=== PATIENT | male | born 1945 | race Caucasian/White ===

== ENCOUNTER 2023-08-26 08:28 | Day surgery (SDC) | payer BC, SELFPAY ==
[2023-08-15 08:23] VITALS: BMI 29.2
[2023-08-15 08:56] LABS: % Basophils 1.2 % (0-2); % Eosinophils 2.5 % (0-6); % Immature Granulocytes 0.1 % (0-0.5); % Lymphocytes 20.4 % (20.5-51.1); % Monocytes 8.6 % (1.7-9.3); % Neutrophils 67.2 % (42.2-75.2); Absolute Basophils 0.1 10^3/uL (0-0.2); Absolute Eosinophils 0.2 10^3/uL (0-0.7); Absolute Lymphocytes 1.4 10^3/uL (1.2-3.4); Absolute Monocytes 0.6 10^3/uL (0.1-0.6); Absolute Neutrophils 4.5 10^3/uL (1.4-6.5); Hemoglobin 15.3 g/dL (13.0-18.0); Mean Corp Hgb Conc. 33.3 g/dL (33.0-37.0); Mean Corpuscular Hgb 30.2 pg (27.0-31.0); Mean Corpuscular Volume 90.7 fL (80.0-94.0); Mean Platelet Volume 12.4 fL (7.4-10.4); Nucleated Red Blood Cells % 0 % (-); Platelet Count 63 10^3/uL (130-400); Red Blood Cell Count 5.07 10^6/uL (4.70-6.10); Red Cell Dist. Width 13.5 % (11.5-14.5); White Blood Cell Count 6.7 10^3/uL (4.8-10.8)
[2023-08-15 09:12] LABS: ALT (SGPT) 49 U/L (0-50); AST (SGOT) 44 U/L (17-59); Albumin 3.8 g/dl (3.5-5.0); Alkaline Phosphatase 132 U/L (38-126); Blood Urea Nitrogen 16 mg/dl (9-20); Calcium 9.3 mg/dl (8.4-10.2); Carbon Dioxide 26 mmol/L (22-30); Chloride 106 mmol/L (98-107); Estimated Creatinine Clearance 76 ml/min; Glucose 185 mg/dl (70-99); Potassium 3.9 mmol/L (3.5-5.1); Sodium 138 mmol/L (135-145); Total Bilirubin 1.6 mg/dl (0.2-1.3); Total Protein 6.8 g/dl (6.3-8.2); eGFR > 60.00
[2023-08-26] VITALS (14 sets, daily range): BP systolic 90–129; BP diastolic 69–87; BMI 28.4
[2023-08-26 12:10] LABS: ACT-LR - POC 318 Seconds (116-155)
[2023-08-26 12:31] LABS: ACT-LR - POC 326 Seconds (116-155)
--- NOTE | 2023-08-26 13:49 | ITS.CL.ABL ---
Tube Drawing Supervisor - Ablation
Ablation
Procedure Report:
AFIB ablation:
Mr. Mott is a very pleasant 78 yr old gentleman with medical history significant for symptomatic atrial flutter and persistent atrial fibrillation on Metoprolol and Eliquis, with stable ischemic heart disease s/p CABG and small area of inducible
ischemia managed medically is here in the EP lab for atrial fibrillation / flutter ablation
Date of Procedure:
08/26/23
Indications:
Symptomatic atrial fibrillation / atrial flutter
Pre-Operative Diagnosis:
Persistent atrial fibrillation / atrial flutter
Post-Operative Diagnosis:
Persistent atrial fibrillation / atrial flutter
Procedure Performed:
Atrial fibrillation ablation with wide area circumferential ablation (WACA) approach for pulmonary vein isolation
Atrial flutter ablation with cavo-tricuspid isthmus line block formation
Performing Physician:
Valentina Burch MD
Assistants:
EP staff
Anesthesia:
See anesthesia records
Detailed Description of the Procedure:
Written informed consent was obtained from the patient after a full explanation of the risks and benefits of the procedure including the risks of sedation and anesthesia.
The patient was brought to the electrophysiology laboratory in stable condition in fasting state. Continuous electrocardiographic and hemodynamic monitoring was initiated.
The initial rhythm was normal sinus rhythm.
The procedure site was meticulously prepared with surgical scrub and allowed to dry with no pooling. Sterile draping was applied to cover the procedure site. The image intensifier was draped with sterile bag and positioned over the patient. After
infusion of local anesthetic, vascular access was obtained under ultrasound guidance and sheaths were placed over guide wire as detailed below.
Sheath and Catheter Placement:
In the right femoral vein, an 8-Gabonese sheath was placed for use during the ablation procedure. A second 9-Fr sheath was placed for use during intracardiac echo procedure. �Another 7 Fr sheath was placed in the right femoral vein for CS placement.
The sheaths were upgraded as needed during the case. Intracardiac catheters were positioned using direct fluoroscopic guidance.� ICE catheter was placed in RA. The following catheters / sheaths were placed
Sheaths:
��������������� Carto Visigo sheath in right femoral vein upgraded from 8Fr in right femoral vein
��������������� 9Fr in right femoral vein
��������������� 7Fr in right femoral vein
Catheters:
������������� Biosense Serrano Thermocool STSF bidirectional (D/F) - at locations of HRA, RV, LA and LV.
������������� Pentaray catheter � at locations of RA, CS and LA
������������� ICE catheter - at locations of RA, SVC, and RV.
������������� Bard decapolar catheter at RA and CS locations
Heparin was initiated and infused to maintain appropriate ACT.
Intracardiac ECHO:
An 8-Gabonese AcuNav intracardiac ECHO (ICE) probe was advanced through the 9-Gabonese sheath in the femoral vein into the right atrium under fluoroscopic and ICE ultrasound image guidance and a baseline ECHO study was performed. The left atrial size
was enlarged. There was moderate tricuspid regurgitation. The aortic valve was grossly normal. There was normal left ventricular systolic functions. There was trace pericardial effusion. All the veins were identified and good flow noted.
The RA was identified and CTI was imaged. There was Eustachian ridge noted and was imaged throughout the ablation.
During the procedure, ICE was used for monitoring of complications, guidance of trans-septal puncture, monitor the catheter position and tracking ablation lesions. No change in the pericardial space noted throughout the procedure.
Electroanatomic mapping of the right atrium:
A J-tipped guidewire was advanced through the 8-Gabonese sheath in the right femoral vein into the superior vena cava under fluoroscopic and ICE guidance. The 8-Gabonese sheath was exchanged for a VIZIGO sheath which was advanced into the superior vena
cava.
Using the Pentaray catheter advanced through VIZIGO sheath into the right atrium, an electroanatomic map (EAM) of the right atrium was created using [employer] Carto mapping system. The map was used to identify the trans-septal location. It
showed moderately dilated right atrium.
Ablation # 1: Typical Atrial Flutter Ablation:
Patient has a clear history of atrial flutter and as per pre-operative plan. Radiofrequency ablation was performed using a 3.5mm, open irrigation, force-sensing bidirectional ablation catheter (Thermocool STSF) in the cavotricuspid isthmus from the
tricuspid annulus to the IVC ridge. �All the ablation lesions were guided by the [facility] SURPOINT module with the CTI lesions were limited to 40-45 freeman for SURPOINT lesion index goal of 450.
��������������� -Bidirectional block was confirmed across the CTI line with differential pacing.
��������������� -Double potentials were spaced greater than 98 msec apart.
��������������� -The conduction time across the CTI line from proximal CS pacing was 140 msec.
��������������� -EAM of the right atrium was obtained with coronary sinus pacing and showed a line of block at the CTI.
��������������� -The time interval just lateral to the ablation lesions was 140 msec and the lateral wall was 122 msec
��������������� - All these maneuvers confirmed the block at the CTI line.
- Post ablation HV interval was unchanged at 45msec
Then attention was given to atrial fibrillation ablation.
Trans-septal Puncture:
A J-tipped guidewire was advanced through the dilator of the Vizigo sheath in the right femoral vein into the superior vena cava under fluoroscopic and ICE guidance the sheath was advanced into the SVC. A TSX needle was advanced until the tip was
slightly behind the tip of the dilator inside the Visigo sheath. The apparatus was withdrawn until it was in contact with the fossa ovalis. The position was adjusted based on ultrasound images from ICE. Under fluoroscopic, hemodynamic and ICE
ultrasound guidance, left atrium was cannulated by advancing the needle. Once atrial septum was cannulated, the needle was pulled back and saline injection was given into the LA confirming the cannulation. Both the sheath and the dilator was
advanced into the left atrium. The dilator with the needle was withdrawn. Blood was aspirated from the sheath and arterial blood confirmed. The sheath was flushed. Saline injection noted into the left atrium on ICE. The pressure waveform was checked
ad LA pressure measured. The penta-ray catheter was advanced in the sheath into the left pulmonary vein.
The 3-D mapping was done and then the penta-ray was switched to ablation catheter and back to penta-ray as needed.
3D Electroanatomic Mapping - LA:
Using the Pentaray catheter advanced through VIZIGO sheath into the left atrium, an electroanatomic map (EAM) of the left atrium was created using [employer] Carto mapping system. The map was used for localization of catheter position and
tacking of ablation lesions. The EAM of the left atrium showed a two left sided veins with 2 right sided veins with all electrically connected to the body the LA. It showed no significant scar in the LA. The LA was dilated in size.
Following the EAM, preparations were made for ablation.
Phrenic nerve stimulation attempt:
The right sided pulmonary veins were identified and the anterior antrum and the deep anterior locations of the PVs were check with high output stimulation 20mA for 4 milliseconds that showed no phrenic nerve capture in any of the potential ablation
areas.
No phrenic nerve capture was noted and the safe areas were marked and a design line was created through the areas of tested antral myocardium for ablation lesions.
Ablation # 2: Pulmonary vein Isolation:
Radiofrequency ablation was performed using an open irrigation, force-sensing 3.5mm radiofrequency ablation catheter (ThermocoPluromed STSF) by completing the circumferential lesions around the left and right pulmonary veins achieving pulmonary vein
isolation.
All the ablation lesions were guided by the [employer] SURPOINT module with the posterior lesions were limited to 40 freeman for SURPOINT lesion index goal of 380 and anterior wall lesions were limited to SURPOINT index goal of 450.
The esophagus was noted to be on the left side of the LA near the PV antra based on the locations of the esophageal temperature probe. Ablation was stopped for any temperature increase of 0.1 degree C. Max esophageal temperature was 36.8C.
EP study and Confirmation of the PVI and bidirectional block:
Following achievement of entrance block at the pulmonary veins, pacing from the pentaray catheter in each of the four veins at 10 milliamps for 2 milliseconds showed entrance and exit block. All PVI were rechecked at the end of the case and remained
isolated with dissociated and local capture with pacing. Entrance and exit block were demonstrated in all veins.
The LA was mapped with Carto EAM in sinus rhythm confirming the line of block at the ablation lesions lines.
Atrial Flutter � CTI ablation:
The right atrium was again mapped after the AF ablation with CS pacing. The CTI block was confirmed. �
Sinus Node Function: The sinus node functions are within acceptable normal range.
The AV kala functions are deemed within normal range.
AH and HV was measured. AH 84 and HV 46 msec
Arrhythmia Induction:
No sustained arrhythmia was induced at the end of the study.�
Procedure End
ICE study was done again that showed no epicardial accumulation. No complications noted.
Following the completion of the EP study, catheters were removed. Protamine 40 mg was given at the end of the procedure and ACT was checked repeatedly. The sheaths were removed and hemostasis achieved with �figure of 8 suture� and manual compression
after acceptable ACT is achieved.
Left atrial Pressure:
Pre-ablation: Mean LA pressure was 19mmHg
Post-ablation: Mean LA pressure was 15mmHg
Post ablation RA pressure: 11 mmHg
Estimated Blood loss:
<10 cc
Specimens Removed:
None.
Implants / Devices:
None
Urine output:
None
Packs / Drains/ Tubes:
None
Instrument / Sponge Count Correct:
Yes
Complications of the Procedure:
None
Condition of Patient at Time of Transfer:
Hemodynamically stable with no neurological or vascular compromise.
Summary:
Successful atrial fibrillation ablation with circumferential bidirectional line of block at pulmonary vein antra (Pulmonary vein isolation), CTI line formation for typical atrial flutter ablation
[2023-08-26] MEDS: ANESTHETIC LOZENGE 1 LOZENGE PO (14:47)
--- NOTE | 2023-08-26 15:55 | PTCARENOTE ---
Dr Burch at pt bedside speaking to pt and pt's family.
== END 2023-08-26 16:07 | disposition home or self-care (01) ==
LOC: CATH 08:28
PROVIDERS: ATTENDING PHYSICIAN Internal Medicine Cardiovascular Disease; FAMILY PHYSICIAN Family Medicine; OTHER PHYSICIAN Internal Medicine Cardiovascular Disease
DX: I48.19 Other persistent atrial fibrillation (principal); I48.92 Unspecified atrial flutter; I25.9 Chronic ischemic heart disease, unspecified; I11.9 Hypertensive heart disease without heart failure; Z87.891 Personal history of nicotine dependence; I35.0 Nonrheumatic aortic (valve) stenosis; I48.3 Typical atrial flutter; E78.5 Hyperlipidemia, unspecified; Z79.01 Long term (current) use of anticoagulants; Z79.82 Long term (current) use of aspirin
CPT/HCPCS: C1732; C1759; C1769; C1894; C1892; C1730; 36415; 76937; 80053; 85025; 85347; 86850; 86900; 86901; 93005; 93655; 93656; C1760

== ENCOUNTER → 2023-09-25 15:40 | Outpatient (REF) | payer OTHER, SELFPAY | LOC: HWRCS 15:40 | PROVIDERS: ATTENDING PHYSICIAN Nurse Practitioner; FAMILY PHYSICIAN Family Medicine | DX: I48.19 Other persistent atrial fibrillation (principal); I35.0 Nonrheumatic aortic (valve) stenosis; I25.10 Atherosclerotic heart disease of native coronary artery without angina pectoris | CPT/HCPCS: 93306 ==

== ENCOUNTER → 2023-12-04 10:32 | Outpatient (REF) | payer OTHER, SELFPAY ==
[2023-12-04 12:02] LABS: % Basophils 1.1 % (0-2); % Eosinophils 2.7 % (0-6); % Immature Granulocytes 0.5 % (0-0.5); % Lymphocytes 19.8 % (20.5-51.1); % Monocytes 10.8 % (1.7-9.3); % Neutrophils 65.1 % (42.2-75.2); Absolute Basophils 0.1 10^3/uL (0-0.2); Absolute Eosinophils 0.2 10^3/uL (0-0.7); Absolute Lymphocytes 1.7 10^3/uL (1.2-3.4); Absolute Monocytes 0.9 10^3/uL (0.1-0.6); Absolute Neutrophils 5.5 10^3/uL (1.4-6.5); Hematocrit 45.6 % (39.0-52.0); Hemoglobin 15.9 g/dL (13.0-18.0); Mean Corp Hgb Conc. 34.9 g/dL (33.0-37.0); Mean Corpuscular Hgb 30.3 pg (27.0-31.0); Nucleated Red Blood Cells % 0 % (-); Red Blood Cell Count 5.24 10^6/uL (4.70-6.10); Red Cell Dist. Width 13.5 % (11.5-14.5); White Blood Cell Count 8.4 10^3/uL (4.8-10.8)
== END ==
LOC: REG 10:32
PROVIDERS: ATTENDING PHYSICIAN Nurse Practitioner; FAMILY PHYSICIAN Family Medicine
DX: I48.92 Unspecified atrial flutter (principal); D69.6 Thrombocytopenia, unspecified; I25.10 Atherosclerotic heart disease of native coronary artery without angina pectoris; I35.0 Nonrheumatic aortic (valve) stenosis
CPT/HCPCS: 36415; 85025

== ENCOUNTER → 2024-01-14 11:25 | Outpatient (REF) | payer OTHER, SELFPAY | LOC: PET 11:25 | PROVIDERS: ATTENDING PHYSICIAN Internal Medicine | DX: I25.10 Atherosclerotic heart disease of native coronary artery without angina pectoris (principal); Z95.1 Presence of aortocoronary bypass graft; R68.89 Other general symptoms and signs; R94.39 Abnormal result of other cardiovascular function study | CPT/HCPCS: 78431; A9555; J2785 ==

== ENCOUNTER 2024-01-21 08:30 | Day surgery (SDC) | payer OTHER, SELFPAY ==
[2024-01-21] VITALS (9 sets, daily range): BP systolic 136–160; BP diastolic 83–103; BMI 29.1
[2024-01-21] MEDS: SOLU-CORTEF 200 MG IV (09:19)
[2024-01-21] MEDS: BENADRYL 25 MG IV (09:20)
[2024-01-21 10:46] LABS: ALT (SGPT) 78 U/L (0-50); AST (SGOT) 65 U/L (17-59); Albumin 4.3 g/dl (3.5-5.0); Alkaline Phosphatase 87 U/L (38-126); Blood Urea Nitrogen 18 mg/dl (9-20); Calcium 9.5 mg/dl (8.4-10.2); Carbon Dioxide 25 mmol/L (22-30); Chloride 103 mmol/L (98-107); Estimated Creatinine Clearance 70 ml/min; Glucose 139 mg/dl (70-99); Potassium 4.3 mmol/L (3.5-5.1); Sodium 139 mmol/L (135-145); Total Bilirubin 2.4 mg/dl (0.2-1.3); Total Protein 7.2 g/dl (6.3-8.2); eGFR > 60.00
--- NOTE | 2024-01-21 19:15 | ITS.CL.PN ---
Merchandising Professor - Procedure Note
Procedure
Procedure Note:
CARDIAC CATHETERIZATION REPORT
Date of Procedure: 01/21/2024
Referring: Dr. Anthony Verde MD
Indication: atypical angina, moderate risk nuclear stress test
PROCEDURES:
1. Coronary angiography
2. Bypass graft angiography
3. Left heart catheterization
ACCESS:
6 [place] distal left radial artery
CATHETERS:
1. 6 [place] ROSA
3. 6 [place] JR4 (also used to engaged SVG-OM1)
4. 5 [place] AL1 (125 cm needed to reach LM)
HEMODYNAMIC DATA:
LV 175/15 (EDP 23) mmHg
AO 166/85 (mean 111) mmHg
CORONARY ANGIOGRAPHY
Dominance: right
LM: eccentric calcified 95% distal left main disease ([place] 1,1,1)
LAD: large vessel giving rise to two moderate caliber diagonal branches. There is mild disease throughout the LAD system. Competitive flow is seen in the mid-distal LAD.
LCx: large vessel that gives rise to a large branching OM1. There is mild disease in the LCx system. There is competitive flow seen in the OM1.
RCA: large vessel giving rise to a moderate caliber PRDA and small RPL system. There is a 80% stenosis in the proximal vessel and otherwise mild diffuse disease distally.
BYPASS GRAFT ANGIOGRAPHY
HESTER-LAD: taken as a pedicle and forms an anastomosis with the mid-LAD. The distal half of the HESTER is small and atretic. There is a 80% focal stenosis at the distal HESTER just before the LAD anastamosis.
SVG-OM1: large SVG with a patent aorto-ostial anastomosis and patent anastomosis to the OM1.
Radiation dose (mGy): 631
DAP (cm2.Gy): 44.70
Fluoroscopy time (minutes): 14.1
CONCLUSIONS:
1. Coronary artery disease status post-CABG with patent SVG-OM1, atretic HESTER with distal anastomosis disease, and ostial RCA disease.
2. Elevated LV filling pressure and no aortic stenosis.
RECOMMENDATIONS:
1. Expectant management after left distal radial catheterization.
2. Aggressive secondary prevention of coronary artery disease.
3. Symptoms are not clearly anginal and apical stress test abnormality is long standing. Recommend initial medical management with diuresis and trial of anti-anginal uptitration (though patient has had difficulty tolerating lower blood pressures in
the past).
4. If symptoms are progressive despite above, would approach revascularization in stepwise manner, starting with the ostial RCA, then opening the [place] LM-LAD if residual symptoms.
Copy to: Dr. Anthony Verde MD, PhD
Signed: Trent Ames MD, PhD
== END 2024-01-21 13:57 | disposition home or self-care (01) ==
LOC: CATH 08:30
PROVIDERS: ATTENDING PHYSICIAN Student in an Organized Health Care Education/Training Program; FAMILY PHYSICIAN Family Medicine; OTHER PHYSICIAN Internal Medicine
DX: I25.118 Atherosclerotic heart disease of native coronary artery with other forms of angina pectoris (principal); I25.718 Atherosclerosis of autologous vein coronary artery bypass graft(s) with other forms of angina pectoris; I25.84 Coronary atherosclerosis due to calcified coronary lesion; Z79.899 Other long term (current) drug therapy; Z79.01 Long term (current) use of anticoagulants; Z79.85 Long-term (current) use of injectable non-insulin antidiabetic drugs; Z79.02 Long term (current) use of antithrombotics/antiplatelets; E78.5 Hyperlipidemia, unspecified; I27.20 Pulmonary hypertension, unspecified; I12.9 Hypertensive chronic kidney disease with stage 1 through stage 4 chronic kidney disease, or unspecified chronic kidney disease; E11.22 Type 2 diabetes mellitus with diabetic chronic kidney disease; N18.32 Chronic kidney disease, stage 3b; Z87.891 Personal history of nicotine dependence
CPT/HCPCS: 80053; 93005; 93459; Q9967

== ENCOUNTER → 2024-01-23 10:18 | Outpatient (REF) | payer OTHER, SELFPAY | LOC: RAD 10:18 | PROVIDERS: ATTENDING PHYSICIAN Internal Medicine Hematology & Oncology; FAMILY PHYSICIAN Family Medicine | DX: D69.6 Thrombocytopenia, unspecified (principal) | CPT/HCPCS: 76700 ==

== ENCOUNTER → 2024-07-22 08:22 | Outpatient (REF) | payer OTHER, SELFPAY | LOC: HWRAD 08:22 | PROVIDERS: ATTENDING PHYSICIAN Internal Medicine; FAMILY PHYSICIAN Family Medicine | DX: R91.1 Solitary pulmonary nodule (principal) | CPT/HCPCS: 71250 ==

== ENCOUNTER → 2024-07-27 08:03 | Outpatient (REF) | payer OTHER, SELFPAY | LOC: HWRCS 08:03 | PROVIDERS: ATTENDING PHYSICIAN Internal Medicine; FAMILY PHYSICIAN Family Medicine | DX: I25.10 Atherosclerotic heart disease of native coronary artery without angina pectoris (principal); I35.0 Nonrheumatic aortic (valve) stenosis; I48.19 Other persistent atrial fibrillation; I35.1 Nonrheumatic aortic (valve) insufficiency; I77.810 Thoracic aortic ectasia | CPT/HCPCS: 93306 ==

== ENCOUNTER → 2024-08-07 06:51 | Outpatient (REF) | payer OTHER, SELFPAY ==
[2024-08-07 09:13] LABS: INR 1.27; PT 16.1 Sec (11.4-14.6)
[2024-08-07 09:14] LABS: APTT 35.5 Sec (23.4-35.0)
[2024-08-07 09:22] LABS: Hematocrit 45.1 % (39.0-52.0); Hemoglobin 15.7 g/dL (13.0-18.0); Mean Corp Hgb Conc. 34.8 g/dL (33.0-37.0); Mean Corpuscular Hgb 31.8 pg (27.0-31.0); Mean Corpuscular Volume 91.3 fL (80.0-94.0); Red Blood Cell Count 4.94 10^6/uL (4.70-6.10); Red Cell Dist. Width 13.2 % (11.5-14.5); White Blood Cell Count 6.8 10^3/uL (4.8-10.8)
[2024-08-07 09:30] LABS: Blood Urea Nitrogen 13 mg/dl (9-20); Calcium 9.1 mg/dl (8.4-10.2); Carbon Dioxide 29 mmol/L (22-30); Chloride 108 mmol/L (98-107); Glucose 113 mg/dl (70-99); Potassium 3.9 mmol/L (3.5-5.1); Sodium 144 mmol/L (135-145); eGFR > 60.00
== END ==
LOC: SDSPAT 06:51
PROVIDERS: ATTENDING PHYSICIAN Internal Medicine Critical Care Medicine; FAMILY PHYSICIAN Family Medicine; REFERRING PHYSICIAN Internal Medicine
DX: R91.1 Solitary pulmonary nodule (principal)
CPT/HCPCS: 36415; 80048; 85027; 85610; 85730; 93005

== ENCOUNTER 2024-08-14 06:05 | Day surgery (SDC) | payer OTHER, SELFPAY ==
[2024-08-14] VITALS (8 sets, daily range): BP systolic 96–160; BP diastolic 61–90; BMI 27.4
== END 2024-08-14 11:00 | disposition home or self-care (01) ==
LOC: GI 06:05
PROVIDERS: ATTENDING PHYSICIAN Internal Medicine Critical Care Medicine
DX: R91.1 Solitary pulmonary nodule (principal); R59.1 Generalized enlarged lymph nodes; D14.32 Benign neoplasm of left bronchus and lung; J98.4 Other disorders of lung
CPT/HCPCS: 31629; 31628; 31624; 31623; 31627; 31654; 88173; 88305; 71045; 76000; 81459; 88112; 88333; 88341; 88342; 94640; C1887

== ENCOUNTER → 2024-08-28 12:31 | Outpatient (REF) | payer OTHER, SELFPAY | LOC: PET 12:31 | PROVIDERS: ATTENDING PHYSICIAN Internal Medicine Critical Care Medicine | DX: C34.11 Malignant neoplasm of upper lobe, right bronchus or lung (principal) | CPT/HCPCS: 78815; A9552 ==

== ENCOUNTER 2024-09-18 19:48 | Emergency (ER) | payer OTHER, SELFPAY ==
[2024-09-18 20:00] VITALS: BP 124/81
[2024-09-18 20:07] VITALS: BMI 28.5
[2024-09-18 20:11] LABS: % Basophils 0.5 % (0-2); % Eosinophils 1.1 % (0-6); % Immature Granulocytes 0.7 % (0-0.5); % Lymphocytes 6.3 % (20.5-51.1); % Monocytes 8.4 % (1.7-9.3); Absolute Basophils 0.1 10^3/uL (0-0.2); Absolute Eosinophils 0.2 10^3/uL (0-0.7); Absolute Immature Granulocytes 0.2 10^3/uL (0-0.05); Absolute Lymphocytes 1.3 10^3/uL (1.2-3.4); Absolute Monocytes 1.7 10^3/uL (0.1-0.6); Absolute Neutrophils 16.8 10^3/uL (1.4-6.5); Hematocrit 32.6 % (39.0-52.0); Hemoglobin 11.2 g/dL (13.0-18.0); Mean Corp Hgb Conc. 34.4 g/dL (33.0-37.0); Mean Corpuscular Hgb 30.9 pg (27.0-31.0); Mean Corpuscular Volume 89.8 fL (80.0-94.0); Mean Platelet Volume 10.6 fL (7.4-10.4); Nucleated Red Blood Cells % 0 % (-); Platelet Count 318 10^3/uL (130-400); Red Blood Cell Count 3.63 10^6/uL (4.70-6.10); Red Cell Dist. Width 13.5 % (11.5-14.5); White Blood Cell Count 20.2 10^3/uL (4.8-10.8)
[2024-09-18 20:22] LABS: INR 1.29; PT 16.3 Sec (11.4-14.6)
[2024-09-18 20:25] LABS: ALT (SGPT) 84 U/L (0-50); AST (SGOT) 71 U/L (17-59); Albumin 2.9 g/dl (3.5-5.0); Alkaline Phosphatase 169 U/L (38-126); Blood Urea Nitrogen 21 mg/dl (9-20); Calcium 8.3 mg/dl (8.4-10.2); Carbon Dioxide 24 mmol/L (22-30); Chloride 102 mmol/L (98-107); Estimated Creatinine Clearance 88 ml/min; Glucose 230 mg/dl (70-99); Potassium 4.3 mmol/L (3.5-5.1); Sodium 131 mmol/L (135-145); Total Bilirubin 1.3 mg/dl (0.2-1.3); Total Protein 5.4 g/dl (6.3-8.2); eGFR > 60.00
[2024-09-18] MEDS: DUONEB 3 ML INH (20:57)
--- NOTE | 2024-09-18 21:06 | ED.GENMED ---
History of Present Illness
<Janae Bryant PA-C - Last Filed: 09/19/24 04:15>
General
Chief Complaint: Breathing Problem
Source: patient and family (Daughter at bedside)
Exam Limitations: none
Time Seen by Provider: 09/18/24 20:52
Nursing documentation reviewed up to this point in time: agreed with
History of Present Illness
History of Present Illness:
Patient is an 79-year-old male with history atrial fibrillation, lung CA currently postop day 9 from right upper lobectomy who presents the emergency department via EMS with concerns of shortness of breath. Patient states shortness of breath
started gradually yesterday and has been worsening. Patient's daughter, who is a primary care physician, reports noticeable difficulty with breathing and feels that he is very tachypneic. She does not believe that he has been hypoxic.
Patient denies any associated chest pain. He does report a cough with mostly clear sputum. He denies any fever or chills. He denies any swelling of his lower extremities. He denies any nausea, vomiting, or abdominal pain.
Patient had lobectomy performed at [facility] [address] Humphreys[address] He is currently anticoagulated on Eliquis for history of atrial fibrillation and reports compliance with medication.
Review of Systems
<Janae Bryant PA-C - Last Filed: 09/19/24 04:15>
Review of Systems
Allergies reviewed?: Yes
All Other Systems: ROS reviewed and negative except as documented in HPI and ROS
Phy Exam
<Janae Bryant PA-C - Last Filed: 09/19/24 04:15>
Physical Exam
Physical Exam:
- Vitals: Tachypneic. Mildly tachycardic. Afebrile
- General: Noticeably tachypneic on exam.
- HEENT: Moist oral mucosa
- Cardiovascular: No murmurs, mildly tachycardic, regular rhythm, No chest wall tenderness
- Pulmonary: Tachypneic, on 3 L nasal cannula; decreased breath sounds right upper lobe with crackles at right base
- Abdomen: Soft with no peritoneal signs, no tenderness
- Neurologic: Excellent strength all extremities, no coordination deficits
- Psychiatric: Appropriate mental status, normal insight and judgement
- Extremities: Nontender, no edema, moves all extremities equally
- Skin: No rash, no lesions
Scores
<Janae Bryant PA-C - Last Filed: 09/19/24 04:15>
Heart Failure Risk
Heart Failure Risk Score: Not Applicable
Course
<Janae Bryant PA-C - Last Filed: 09/19/24 04:15>
Orders/Labs/Results
Orders:
Orders
09/18/24 19:52
EKG [Electrocardiogram (*1)] Urgent
Reason for Study: Shortness of Breath
EKG- Treatment ONCE
09/18/24 20:05
Complete Blood Count/With Diff Urgent
Comprehensive Metabolic Panel Urgent
PT/INR [Prothrombin Time] Urgent
09/18/24 20:34
Chest X-ray Portable [CR Chest Portable - 1 View] Urgent
Comment:
Reason For Exam: shortness of breath
Reason Study Needs to be Portable: Patient Unstable
09/18/24 20:52
Ipratropium/Albuterol Sulfate [Duoneb] 3 ml .ROUTE .STK-MED ONE
09/18/24 20:56
Ipratropium/Albuterol Sulfate [Duoneb] 3 ml INH R NOW ONE
09/18/24 21:16
Cardiac Monitoring- Treatment ONCE
Urinalysis Reflex To Culture Urgent
Date Specimen was Collected: 09/18/24
Time Specimen was Collected: 21:16
09/18/24 21:18
Lactic Acid Q4H
Comment: ON ICE, CANCEL 2ND ORDER IF FIRST LACTIC ACID LEVEL <2
Blood Culture Q20M
MINDY Source: Blood/Venous
Specimen Description:
Comment: Urgent from separate sites. If patient screens positive for possible sepsis
09/18/24 21:32
Piperacillin/Tazo 3.375 Gram [Zosyn] 3.375 gram in 50 ml IV NOW
09/18/24 21:57
Blood Culture Q20M
MINDY Source: Blood/Venous
Specimen Description:
Comment: Urgent from separate sites. If patient screens positive for possible sepsis
09/18/24 21:58
Vancomycin [Vancocin] 2,000 mg 0.9% Sodium Chloride 500 ml [Nss] 500 ml IV NOW
09/18/24 23:12
Electrocardiogram (*1) Urgent
Reason for Study: Shortness of Breath
EKG- Treatment ONCE
Abnormal Lab Results
09/18/24
20:05
WBC 20.2 H 10^3/uL
(4.8-10.8)
RBC 3.63 L 10^6/uL
(4.70-6.10)
Hgb 11.2 L g/dL
(13.0-18.0)
Hct 32.6 L %
(39.0-52.0)
MPV 10.6 H fL
(7.4-10.4)
Abs Immat Gran (auto) 0.2 H 10^3/uL
(0-0.05)
Absolute Neuts (auto) 16.8 H 10^3/uL
(1.4-6.5)
Absolute Monos (auto) 1.7 H 10^3/uL
(0.1-0.6)
Immature Gran % 0.7 H %
(0-0.5)
Neutrophils % 83.0 H %
(42.2-75.2)
Lymphocytes % 6.3 L %
(20.5-51.1)
PT 16.3 H Sec
(11.4-14.6)
Sodium 131 L mmol/L
(135-145)
BUN 21 H mg/dl
(9-20)
Glucose 230 H mg/dl
(70-99)
Calcium 8.3 L mg/dl
(8.4-10.2)
AST 71 H U/L
(17-59)
ALT 84 H U/L
(0-50)
Alkaline Phosphatase 169 H U/L
(38-126)
Total Protein 5.4 L g/dl
(6.3-8.2)
Albumin 2.9 L g/dl
(3.5-5.0)
09/18/24 20:05
09/18/24 20:05
Vital Signs
Initial and Last Documented VS:
Initial Vital Signs
Temp Pulse Pulse Ox
98.3 F 109 99
09/18/24 19:59 09/18/24 19:59 09/18/24 19:59
Last Documented Vital Signs
Temp Pulse Resp BP Pulse Ox
98.3 F 101 20 126/81 99
09/18/24 20:07 09/18/24 23:45 09/18/24 23:45 09/18/24 23:00 09/18/24 23:30
Derejelt;Anupam Schaeffer, DO - Last Filed: 09/18/24 21:47>
Orders/Labs/Results
Orders:
Orders
09/18/24 19:52
EKG [Electrocardiogram (*1)] Urgent
Reason for Study: Shortness of Breath
EKG- Treatment ONCE
09/18/24 20:05
Complete Blood Count/With Diff Urgent
Comprehensive Metabolic Panel Urgent
PT/INR [Prothrombin Time] Urgent
09/18/24 20:34
Chest X-ray Portable [CR Chest Portable - 1 View] Urgent
Comment:
Reason For Exam: shortness of breath
Reason Study Needs to be Portable: Patient Unstable
09/18/24 20:52
Ipratropium/Albuterol Sulfate [Duoneb] 3 ml .ROUTE .STK-MED ONE
09/18/24 20:56
Ipratropium/Albuterol Sulfate [Duoneb] 3 ml INH R NOW ONE
09/18/24 21:16
Cardiac Monitoring- Treatment ONCE
Urinalysis Reflex To Culture Urgent
Date Specimen was Collected: 09/18/24
Time Specimen was Collected: 21:16
09/18/24 21:18
Lactic Acid Q4H
Comment: ON ICE, CANCEL 2ND ORDER IF FIRST LACTIC ACID LEVEL <2
Blood Culture Q20M
MINDY Source: Blood/Venous
Specimen Description:
Comment: Urgent from separate sites. If patient screens positive for possible sepsis
09/18/24 21:32
Piperacillin/Tazo 3.375 Gram [Zosyn] 3.375 gram in 50 ml IV NOW
09/18/24 21:57
Blood Culture Q20M
MINDY Source: Blood/Venous
Specimen Description:
Comment: Urgent from separate sites. If patient screens positive for possible sepsis
09/18/24 21:58
Vancomycin [Vancocin] 2,000 mg 0.9% Sodium Chloride 500 ml [Nss] 500 ml IV NOW
09/18/24 23:12
Electrocardiogram (*1) Urgent
Reason for Study: Shortness of Breath
EKG- Treatment ONCE
Abnormal Lab Results
09/18/24
20:05
WBC 20.2 H 10^3/uL
(4.8-10.8)
RBC 3.63 L 10^6/uL
(4.70-6.10)
Hgb 11.2 L g/dL
(13.0-18.0)
Hct 32.6 L %
(39.0-52.0)
MPV 10.6 H fL
(7.4-10.4)
Abs Immat Gran (auto) 0.2 H 10^3/uL
(0-0.05)
Absolute Neuts (auto) 16.8 H 10^3/uL
(1.4-6.5)
Absolute Monos (auto) 1.7 H 10^3/uL
(0.1-0.6)
Immature Gran % 0.7 H %
(0-0.5)
Neutrophils % 83.0 H %
(42.2-75.2)
Lymphocytes % 6.3 L %
(20.5-51.1)
PT 16.3 H Sec
(11.4-14.6)
Sodium 131 L mmol/L
(135-145)
BUN 21 H mg/dl
(9-20)
Glucose 230 H mg/dl
(70-99)
Calcium 8.3 L mg/dl
(8.4-10.2)
AST 71 H U/L
(17-59)
ALT 84 H U/L
(0-50)
Alkaline Phosphatase 169 H U/L
(38-126)
Total Protein 5.4 L g/dl
(6.3-8.2)
Albumin 2.9 L g/dl
(3.5-5.0)
09/18/24 20:05
09/18/24 20:05
Vital Signs
Initial and Last Documented VS:
Initial Vital Signs
Temp Pulse Pulse Ox
98.3 F 109 99
09/18/24 19:59 09/18/24 19:59 09/18/24 19:59
Last Documented Vital Signs
Temp Pulse Resp BP Pulse Ox
98.3 F 101 20 126/81 99
09/18/24 20:07 09/18/24 23:45 09/18/24 23:45 09/18/24 23:00 09/18/24 23:30
<Janae Bryant PA-C - Last Filed: 09/19/24 04:15>
MDM/Problems Addressed
Differential Diagnosis Includes:
Not limited to: Pleural effusion, pneumonia, pneumothorax, pulmonary embolism, etc.
MDM/Problems Addressed:
79-year-old male with history as documented significant for recent right upper lobectomy at [facility] who presents with acutely worsening shortness of breath for the past 2 days associated with productive cough. No associated fevers or chest pain. On
arrival�patient notably tachypneic, he was placed on 3L nasal cannula prior to my evaluation and is satting in upper 90s. On exam�patient in mild respiratory distress. He has decreased lung sounds at right upper lobe with crackles at right base.
He is mildly tachycardic although with normal heart sounds. No evidence of lower extremity edema. Differential broad however concern for infectious causes such as pneumonia as well as pneumothorax, pleural effusion given recent procedure. Feel
pulmonary embolism is less likely given patient is currently anticoagulated on Eliquis and compliant with medications however would be on differential.
Lab work obtained significant for leukocytosis of 20.2 with left shift. Chemistry reveals mild hyponatremia as well as elevated alk phos and transaminitis. Portable chest x-ray obtained and reviewed with radiologist which shows suspicion of right
mid/lower lobe pneumonia as well as evidence of right upper lobe pneumothorax. Patient meets sepsis criteria. Will obtain lactic acid and blood cultures. Will give IV fluids and initiate IV antibiotics�vancomycin and Zosyn.
Given complicated medical history as well as recent cardiothoracic procedure�will contact [facility] surgery to consider transfer.
Chronic conditions affecting care:
Atrial fibrillation, lung CA s/p right upper lobectomy
Acute Exacerbation and/or Progression of Chronic Illness:
Acute pneumonia and post procedural pneumothorax
<Janae Bryant PA-C - Last Filed: 09/19/24 04:15>
*Radiology
Radiology exam reviewed: preliminary read by ED provider (Chest x-ray reveals pneumonia of right lower lobe and pneumothorax) and radiology read reviewed
*Pulse Oximetry
SaO2: 99
Nasal Cannula flow liters per minute: 4
Oxygen Mode of Delivery: Room air
Patient hypoxic: yes
*EKG
Interpreted by ED Provider?: Yes
EKG Intrepretation Date: 09/18/24
Interpretation: abnormal
Comparison EKG: no changes
Heart Rate: 108
Rate: tachycardiac
Rhythm: sinus and PAC's
Harmony: normal axis
QRS Pattern: left vent hypertrophy
Ischemia: non-specific ST changes
*Application Penetration Tester Interpretation
Rate: tachycardiac
Interpretation: normal
Heart Rate: 108
Rhythm: sinus
*Critical Care Note
Total Time (30-74mins, 75-104mins- exclusive of procedures): 35
comment:
Critical care statement: A total of 35 minutes of critical care time was provided for this patient. This includes management of unstable vital signs, evaluation of the patient at bedside, reviewing the patient's pertinent medical records, discussion
with consultants, review of old EKGs and review of pertinent medical records. This time with separate from time utilized to perform the aforementioned documented procedures
Data Reviewed
Review of Other/Old Records Reveals: Radiology Studies (Chest x-ray reviewed upon discharge from [facility] following lobectomy which showed no evidence of pneumothorax)
<Janae Bryant PA-C - Last Filed: 09/19/24 04:15>
Patient Management
Discussion with other providers: [employer] Law Clerk (Case discussed with cardiothoracic surgeon at [facility] - Dr. Davis)
Escalation/DeEscalation of care consider admission/obs:
Transfer to [facility] further management given respiratory distress secondary to pneumonia and postprocedural pneumothorax
<Janae Bryant PA-C - Last Filed: 09/19/24 04:15>
Update Note
Update Note:
Update: Case discussed with [facility] cardiothoracic surgery, Dr. Davis who accepts patient to his service for further care. Discussed consideration of CTA chest however feel pulmonary embolism less likely diagnosis given chest x-ray findings and that
patient is anticoagulated on Eliquis. CT surgery at [facility] agrees�will hold off on CTA now. Also discussed chest tube placement however Dr. Davis instructed us to hold off on placement and transfer patient down to [facility] for further care. Patient
remains tachypneic however with stable vital signs on 3 L nasal cannula. He is comfortable appearing.
Patient will be transferred [facility] bed at 1153 [facility]. Transport arranged for 1145 p.m. Patient and patient's daughter comfortable with plan.
Update: Patient transferred out of department to [facility] in stable condition.
ED Attending Note
<Janae Bryant PA-C - Last Filed: 09/19/24 04:15>
-
Portions of this chart may have been created with voice recognition software.� Occasional wrong word or��sound alike� substitutions may have occurred due to the inherent limitations of voice recognition software.
<Anupam Schaeffer DO - Last Filed: 09/18/24 21:47>
ED Attending Note
Patient seen and examined by attending physician: Yes
I performed the substantive portion of visit, reviewed & personally made and approve the management plan that is documented in note by myself or DONALD.: Yes
ED Attending Note:
I have seen and evaluated the patient with a [id number] encounter. I have spoken to the advance practicer provider and involved in the medical history, the physical exam, medical decision making.
Evaluation and management service: agree unless noted differently below.
Results interpretation: agree unless noted differently below.
Focused HPI: 79-year-old male presenting with worsening shortness of breath that started yesterday. Of note, patient had a recent right upper lobe lobectomy at [facility] for lung cancer
Physical exam: Tachypneic, decreased breath sounds in right upper lung field. Mild tachycardia
Medical Decision Making: Initially, there was concern for possible PE but this is less likely given that he is on Eliquis. Stat x-ray performed showing expected postsurgical pneumothorax. However, daughter at bedside showed chest x-ray just prior
to discharge when he was at [facility]. At that time, the pneumothorax had almost completely resolved. It appears to have gotten worse since this morning. Will discuss case with his CT surgery team at [facility]. Will likely transfer given postsurgical
complication. Patient requiring supplemental oxygen
Discharge Plan
Departure
Patient Disposition: Acute Care Hospital
Date of Disposition: 09/18/24
Time of Disposition: 22:48
Discharge Problem:
Sepsis, Pneumonia, Pneumothorax
Prescriptions:
No Action
isosorbide mononitrate 30 mg Tablet Extended Release 24 Hr
15 mg PO DAILY
fexofenadine 180 mg Tablet
180 mg PO HSPRN PRN (Reason: allergies)
dutasteride 0.5 mg Capsule
0.5 mg PO DAILY
rosuvastatin 40 mg Tablet
40 mg PO DAILY
cholecalciferol (vitamin D3) 50 mcg (2,000 unit) Tablet
50 mcg PO DAILY
Eliquis 5 mg Tablet
5 mg PO BID
ezetimibe 10 mg Tablet
10 mg PO DAILY
PreserVision AREDS-2 250-90-40-1 mg Capsule
1 tab PO BID
amlodipine [Norvasc] 5 mg Tablet
5 mg PO DAILY
Referrals:
Martin White DO [Family Provider, Family Practice]
Hospital Transfer
Other hospital: [facility]
I certify that the patient requires transfer: Yes
Discussed case with accepting physician: Dr. Davsi
Reason for transfer: higher level of care
Interventions
Interventions:
*Risk Screen - Suicide Last Done: 09/19/24 00:29
*General Assessment Last Done: 09/18/24 20:02
*Neglect/Abuse Screening Last Done: 09/18/24 20:04
*ED- Fall Risk Assessment Last Done: 09/18/24 20:02
*ED COVID-19 Vaccine History Last Done: 09/18/24 20:02
*Nursing Disposition Last Done: 09/19/24 00:49
ED- Cardiac Assessment Last Done: 09/18/24 20:30
ED- Pulmonary Assessment Last Done: 09/18/24 20:30
Discharge Date and Time
Discharge Date/Time: 09/19/24 00:00
Print Language: ICELANDIC
[2024-09-18 21:39] LABS: Lactic Acid 1.3 mmol/L (0.7-2.0)
[2024-09-18] MEDS: ZOSYN 50 IV (21:59)
[2024-09-18 22:00] VITALS: BP 114/98
[2024-09-18] MEDS: VANCOCIN 540 MG IV (22:41)
[2024-09-18 23:00] VITALS: BP 126/81
== END 2024-09-19 | disposition short-term general hospital (02) ==
LOC: EMR 19:48
PROVIDERS: Physician Assistant; EMERGENCY PHYSICIAN Student in an Organized Health Care Education/Training Program; FAMILY PHYSICIAN Family Medicine
DX: R06.02 Shortness of breath (principal); I48.91 Unspecified atrial fibrillation; A41.9 Sepsis, unspecified organism; J18.9 Pneumonia, unspecified organism; J93.9 Pneumothorax, unspecified; E87.1 Hypo-osmolality and hyponatremia; Z79.01 Long term (current) use of anticoagulants; Z90.2 Acquired absence of lung [part of]
CPT/HCPCS: 99291; 94640; 96365; 96366; 96367; 71045; 80053; 83605; 85025; 85610; 87040; 93005

== ENCOUNTER 2024-12-22 09:30 | Outpatient (RCR) | payer OTHER, SELFPAY | END 2024-12-22 23:59 | disposition home or self-care (01) | LOC: PURB 09:30 | PROVIDERS: ATTENDING PHYSICIAN Thoracic Surgery (Cardiothoracic Vascular Surgery); FAMILY PHYSICIAN Family Medicine | DX: C34.11 Malignant neoplasm of upper lobe, right bronchus or lung (principal) | CPT/HCPCS: G0237; G0239 ==

== ENCOUNTER 2025-01-21 09:30 | Outpatient (RCR) | payer OTHER, SELFPAY | END 2025-01-21 23:59 | disposition home or self-care (01) | LOC: PURB 09:30 | PROVIDERS: ATTENDING PHYSICIAN Thoracic Surgery (Cardiothoracic Vascular Surgery); FAMILY PHYSICIAN Family Medicine | DX: C34.11 Malignant neoplasm of upper lobe, right bronchus or lung (principal) | CPT/HCPCS: 94625; G0239 ==

== ENCOUNTER 2025-02-09 09:30 | Outpatient (RCR) | payer OTHER, SELFPAY | END 2025-02-10 11:38 | disposition home or self-care (01) | LOC: PURB 09:30 | PROVIDERS: ATTENDING PHYSICIAN Thoracic Surgery (Cardiothoracic Vascular Surgery); FAMILY PHYSICIAN Family Medicine | DX: C34.11 Malignant neoplasm of upper lobe, right bronchus or lung (principal) | CPT/HCPCS: G0239 ==